=== PATIENT | female | born 1965 | race Caucasian/White ===

== ENCOUNTER 2022-12-08 10:54 | Emergency (ER) | payer MEDICAID, SELFPAY ==
[2022-12-08 10:55] VITALS: BP 141/85; PULSE 95; RESP 16; TEMP 36.2; O2SAT 99; BMI 29.7
--- NOTE | 2022-12-08 11:04 | ED.RN ---
PT NOT FORTHCOMING WITH MEDICAL INFORMATION. THIS RN MUST ASK QUESTIONS MULTIPLE TIMES FOR PATIENT TO RESPOND. WHEN ASKED ABOUT MENTAL HEALTH AND SUICIDAL IDEATION PT STATES YES AND YES THAT SHE ATTEMPTED IN THE PAST YEAR. SHE REFUSES TO ELABORATE AND FOR THAT I PUT A MODERATE RISK FOR PHYSICIAN EVALUATION. PT RIPPED GAUZE OFF HER ARM FROM BLOOD DRAW AND THREW IT ON THE GROUND. PT INFORMED THAT KIND OF BEHAVIOR IS NOT TOLERATED. PT WALKED TO THE BATHROOM BY THIS RN. SHE REFUSES TO PEE IN A CUP. PT ASSISTED BACK TO ROOM WHERE SHE PULLS HER CARDIAC MONITORING LEADS OFF AND LAYS BACK DOWN IN BED.
--- NOTE | 2022-12-08 12:01 | EDS_ITS ---
HPI History of Present Illness Chief Complaint: Back Informant: patient Onset/Context/Timing Onset: Days (5) Context: Gradual Onset Chronic pain exacerbated by: Fall 5 days ago Injury: fall Timing: Continuous Quality: Throbbing Location: Lumbar, Buttock and Left Leg Worsened by: improves with Nothing Relieved by: Nothing Associated Symptoms Associated Symptoms: Radiation to Left Leg and Abdominal Pain; Negative for Numbness, Tingling, Radiation to Right Leg, Fever, Dysuria, Unable to Ambulate, Unable to Transfer, Urinary Retention, Urinary Incontinence, Constipation or Fecal Incontinence Narrative Narrative: Patient presents with back pain that began 5 days ago. Patient states she fell at that time. Patient states her pain is over her lower back and radiates into her left lower extremity. Patient denies any difficulty walking. Patient denies any paresthesias. Patient describes her pain as throbbing. Patient denies any weakness. Patient denies any bowel or bladder incontinence. Patient states she has noted some blood in her urine recently. Patient denies any fevers or chills. [facility] Medical History (Updated 12/08/22 @ 15:[address] Sanjeev Whipple DO) Asthma COPD (chronic obstructive pulmonary disease) Hyperlipidemia Hypertension Home Medications aspirin 81 mg chewable tablet 81 mg PO DAILY 12/08/22 [History Last Taken Unknown] ciprofloxacin HCl 500 mg tablet 500 mg PO BID #6 TABLETS 12/08/22 [Rx Last Taken Unknown] losartan 100 mg tablet 100 mg PO DAILY 12/08/22 [History Last Taken Unknown] Allergy/AdvReac Type Severity Reaction Status Date / Time ibuprofen Allergy Other Verified 12/08/22 10:59 Surgical History History of left hip replacement Hx of hysterectomy Hx of tubal ligation Social History Smoking Status: Current every day smoker tobacco type: cigarettes ROS ROS ED Constitutional Constitutional ED: Denies chills or fever(s) Eyes Eyes: Denies blurry vision or change in vision ENT ENT ED: Denies rhinorrhea or sore throat Cardiovascular Cardiovascular: Denies chest pain or palpitations Respiratory/Chest Respiratory/Chest: Denies cough or dyspnea Gastrointestinal Gastrointestinal: Reports abdominal pain; Denies nausea or vomiting Genitourinary Genitourinary ED: Reports hematuria; Denies dysuria Musculoskeletal Musculoskeletal: Reports back pain; Denies neck pain Integumentary Denies abscess or rash Neurologic Neurologic: Denies headache(s) or weakness Allergic/Immunologic Allergic/Immunologic ED: Denies mouth swelling or urticaria EXAM Physical Exam Const Vital Signs: 12/08/22 10:55 12/08/22 14:54 Temperature 97.2 F L Temperature Source Temporal Pulse Rate 95 95 Respiratory Rate 16 20 H Blood Pressure 141/85 H 135/81 H Blood Pressure Mean 103 99 Pulse Ox 99 94 Oxygen Delivery Method Room Air Room Air Positive well nourished and well developed General Appearance ED: well developed HEENT Reports moist mucous membranes Neck supple and no JVD Resp normal respiratory effort and clear to auscultation bilaterally Cardio regular rate, regular rhythm and no murmurs GI normal to inspection, nondistended, normoactive bowel sounds and non-tender Palpation: soft Extremity normal to inspection General Extremety ED: Negative for edema or tenderness General Extremity: Negative for edema Neuro oriented x3, CN's II-XII intact bilaterally and no sensory deficits noted Sensorium / Orientation: alert Motor Exam: strength 5/5 throughout Psych mental status grossly normal Skin no rashes or lesions noted MDM MDM MDM Narrative Medical decision making narrative: Differential diagnosis includes lumbosacral strain, hemorrhagic cystitis, pyelonephritis, ectopic , and gastrointestinal etiology. We will obtain lumbar spine x-rays to check for lumbar fracture or spondylolisthesis. We will obtain a CT scan of the abdomen and pelvis to check for pyelonephritis or renal calculus. We will obtain urinalysis to check for urinary tract infection and hematuria. We will obtain a test to check for pregn alfonso/ectopic . We will check a CBC to look for leukocytosis and anemia. We will check a basic metabolic profile to check for electrolyte abnormality and renal function. Lab Data Attestation: I reviewed the patient's lab results. Lab results narrative: CBC was reviewed and was within normal limits. Basic metabolic profile was reviewed and was essentially within normal limits. Serum hCG was reviewed and was negative. Urinalysis was reviewed and showed a leukocyte esterases of 500 with 25-50 white blood cells and 2+ bacteria. There were positive nitrites. Occult blood was 150 but there were 0 red blood cells noted. Urine culture was ordered. Labs: Laboratory Results - last 24 hr 12/08/22 12/08/2212/08/23 12:00 12:00 12:00 WBC 7.3 RBC 4.58 Hgb 14.5 Hct 43.6 MCV 95.2 MCH 31.7 MCHC 33.3 RDW Std Deviation 57.5 H RDW Coeff of Belinda 16.9 H Plt Count 211 MPV 10.0 Immature Gran % (Auto) 1.200 H Neut % (Auto) 55.6 Lymph % (Auto) 34.5 Brantley % (Auto) 8.2 Eos % (Auto) 0.1 Baso % (Auto) 0.4 Absolute Neuts (auto) 4.1 Absolute Lymphs (auto) 2.53 Nucleated RBC % 0 Sodium 143 Potassium 3.2 L Chloride 108 H Carbon Dioxide 27.0 Anion Gap 8 BUN 8 Creatinine 0.64 Estim Creat Clear Calc 82.16 Est GFR (MDRD) Af Amer 123 Est GFR (MDRD) Non-Af 102 BUN/Creatinine Ratio 12.5 Glucose 96 Calcium 8.4 L Serum , Qual NEGATIVE Urine Color Urine Clarity Urine pH Ur Specific [place] Urine Protein Urine Glucose (UA) Urine Ketones Urine Occult Blood Urine Nitrite Urine Bilirubin Urine Urobilinogen Ur Leukocyte Esterase Urine RBC Urine WBC Ur Squamous Epith Cells Urine Bacteria Urine Mucus 12/08/22 14:20 WBC RBC Hgb Hct MCV MCH MCHC RDW Std Deviation RDW Coeff of Belinda Plt Count MPV Immature Gran % (Auto) Neut % (Auto) Lymph % (Auto) Brantley % (Auto) Eos % (Auto) Baso % (Auto) Absolute Neuts (auto) Absolute Lymphs (auto) Nucleated RBC % Sodium Potassium Chloride Carbon Dioxide Anion Gap BUN Creatinine Estim Creat Clear Calc Est GFR (MDRD) Af Amer Est GFR (MDRD) Non-Af BUN/Creatinine Ratio Glucose Calcium Serum , Qual Urine Color YELLOW Urine Clarity Sl Cldy Urine pH 6.0 Ur Specific [place] 1.020 Urine Protein 30 H Urine Glucose (UA) Normal Urine Ketones 5 H Urine Occult Blood 150 H Urine Nitrite Positive H Urine Bilirubin Negative Urine Urobilinogen 1 H Ur Leukocyte Esterase 500 H Urine RBC 0 SEEN Urine WBC 25-50 SEEN Ur Squamous Epith Cells 0-5 SEEN Urine Bacteria 2+ Urine Mucus 0 SEEN Radiography Diagnostic Testing: Clinical Impression(s) from Imaging Studies Abdomen/Pelvis CT 12/08/22 12:07 IMPRESSION: 1. Moderate hepatic steatosis. 2. Question chronic colitis. Electronically Signed: Trung hSah MD at 13:44 EST , Lumbar Spine X-Ray 12/08/22 13:15 IMPRESSION: L2-3 disc degeneration. Electronically Signed: Trung Shah MD at 13:45 EST Reading Location ID and State: [id number] / Tel , Service support , X-rays of the lumbar spine were obtained. There are 3 views. On my independent interpretation, there is no acute fracture or spondylolisthesis. There are some degenerative changes at the L2-L3 area. CT scan of the abdomen pelvis was obtained. On my interpretation, there is no free air or obstruction. There is no ascites. CT scan was also interpreted by the radiologist. On his interpretation, there is moderate hepatic steatosis and questionable chronic colitis. There is no acute abnormality noted. Treatment and Re-Evaluation Narrative: Patient was feeling better on reevaluation. Patient was given a dose of Cipro here. Patient was given a prescription for Cipro. Patient was instructed to drink plenty of fluids. Patient was instructed to continue Tylenol as needed for pain. Patient was instructed to follow-up with her primary care physician in 5 to 7 days. Patient understood and was agreeable with the plan. All questions were answered. Discharge Plan Triage Chief Complaint: Back ED Provider: Sanjeev Whipple Dx/Rx/DC Orders Clinical Impression: Urinary tract infection, Low back pain Instructions: ED Back Pain (Acute or Chronic), ED Cystitis Female Adult Prescriptions: New ciprofloxacin HCl [ciprofloxacin HCl] 500 mg tablet 500 mg PO BID Qty: 6 0RF No Action aspirin [Baby Aspirin] 81 mg Tablet,Chewable 81 mg PO DAILY losartan 100 mg Tablet 100 mg PO DAILY Primary Care Provider: Care Physician,No Primary Referrals: NOT,DEFINED [Non-Staff] - 5-7 Days Disposition Disposition: Home, Self Care
--- NOTE | 2022-12-08 12:07 | CT_ITS ---
EXAM: CT ABDOMEN AND PELVIS WITHOUT INTRAVENOUS CONTRAST CLINICAL INDICATION: Back and flank pain X5 DAYS TECHNIQUE: Helically acquired images were obtained of the abdomen and pelvis without intravenous contrast. This CT exam was performed using one or more of the following dose reduction techniques: automated exposure control, adjustment of the mA and/or kV according to patient size, and/or use of iterative reconstruction technique. This report was created using [employer] report generation technology. COMPARISON: None. FINDINGS: LOWER THORAX: Mild air trapping of the lung bases. ABDOMEN: LIVER: Moderate hepatic steatosis. GALLBLADDER AND BILE DUCTS: Normal. No calcified gallstones. No gallbladder distention or wall edema. No intra- or extrahepatic biliary ductal dilation. PANCREAS: Normal. No focal cystic mass. SPLEEN: Normal. Normal size without focal cystic or solid mass. ADRENALS: Normal. No nodules. KIDNEYS AND URETERS: Normal. No hydronephrosis. STOMACH AND BOWEL: Large bowel is diffusely contracted which may account for some of the apparent wall thickening. However, underlying chronic colitis involving the cecum and ascending colon to BE considered. Terminal ileum appears normal. PELVIS: APPENDIX: No evidence of acute appendicitis. BLADDER: Normal. REPRODUCTIVE: Uterus is absent. ABDOMEN and PELVIS: INTRAPERITONEAL SPACE: Normal. No ascites or other fluid collection. No free air. BONES/JOINTS: Left hip prosthesis in place. Mild dextroscoliosis centered at the L2-3 level there is disc space narrowing and bony spurring. No suspicious lytic or blastic abnormality. SOFT TISSUES: Normal. No discrete abdominal or pelvic wall hernia. VASCULATURE: Normal. Abdominal aorta is non-dilated. LYMPH NODES: Normal. No enlarged lymph nodes. CT/Abdomen/Pelvis without Cont IMPRESSION: 1. Moderate hepatic steatosis. 2. Question chronic colitis. Electronically Signed: Trung Shah MD at 13:44 EST ,
[2022-12-08] MEDS: Acetaminophen 500 MG Tablet 1000 MG PO (12:24)
[2022-12-08 12:29] LABS: Absolute Lymphocyte Count 2.53 X10^3/uL (0.83-4.51); Absolute Neutrophil Count 4.1 X10^3/uL (2.0-7.7); Basophil# 0.03 X10^3/uL; Basophil% 0.4 % (0-1); Eosinophil# 0.01 X10^3/uL; Eosinophils% 0.1 % (0-5); Hematocrit 43.6 % (37-47); Hemoglobin 14.5 g/dL (12.0-15.0); Lymphocyte # 2.53 X10^3/ul (0.83-4.51); Lymphocyte % 34.5 % (19-41); Mean Corp Hgb Conc 33.3 g/dL (32-36); Mean Corpuscular Hgb 31.7 pg (27.0-32.0); Mean Corpuscular Volume 95.2 fL (81-99); Monocyte% 8.2 % (0-10); NRBC Flagged by Analyzer 0 % (0-5); Neutrophil # 4.08 X10^3/uL (2.7-7.7); Neutrophil % 55.6 % (47-70); Platelet Count 211 K/mm3 (150-450); RBC Distribution Width CV 16.9 % (11.6-14.6); RBC Distribution Width SD 57.5 fl (35.1-43.9); Red Blood Count 4.58 M/mm3 (4.2-5.4); White Blood Count 7.3 K/mm3 (4.4-11.0)
[2022-12-08 12:38] LABS: Anion Gap 8 (5-15); BUN 8 mg/dL (7-18); BUN/Creat Ratio 12.5 RATIO (10-20); Calcium,Total 8.4 mg/dL (8.5-10.1); Chloride 108 mmol/L (98-107); Creatinine, Serum 0.64 mg/dL (0.55-1.02); EST Glomerular Filtration Rate 102 mL/min (>60); Est Glom Filt Rate - Afr Amer 123 mL/min (>60); Estimated Creatinine Clearance 82.16 ml/min; Glucose 96 mg/dL (74-106); Potassium 3.2 mmol/L (3.5-5.1); Sodium Level 143 mmol/L (136-145)
[2022-12-08] MEDS: 0.9% Normal Saline 1,000 ML 1000 ML IV (12:43)
[2022-12-08 13:05] LABS: Internal QC Validated? YES +Cl - CLEAR BKGD; Pregnancy, Serum, hCG Quali. NEGATIVE Negative
--- NOTE | 2022-12-08 13:15 | RAD_ITS ---
EXAM: XR LUMBOSACRAL SPINE, 2 OR 3 VIEWS CLINICAL INDICATION: Injury/Pain TECHNIQUE: Frontal and lateral views of the lumbar spine and sacrum. This report was created using [employer] report generation technology. COMPARISON: None. FINDINGS: VERTEBRAE: No acute fracture or subluxation. DISC SPACES: Narrowing of the left side of the L2-3 disc space associated with mild dextroscoliosis and vertebral body hypertrophy. RAD/Lumbar Spine 2 or 3 Views IMPRESSION: L2-3 disc degeneration. Electronically Signed: Trung Shah MD at 13:45 EST ,
--- NOTE | 2022-12-08 13:34 | ED.RN ---
Patients daughter Shanta calling asking for patient information. Shanat informed we cannot share any information over the phone due to her not being an emergency contact. Shanta asked if she could talk to patient. Rn informed Shanta that she is out of the department at this time and will inform patient when she returns. daughters number left to call back. Patient asked if it is ok to share information with Shanta. patient said yes.
--- NOTE | 2022-12-08 13:39 | ED.RN ---
attempt to call daughter. unable to reach her at this time. message left on answering machine
[2022-12-08 14:27] LABS: Mucous, Urine 0 SEEN /hpf (<or=2+); Red Blood Cells-Urine 0 SEEN /hpf (0-5)
--- NOTE | 2022-12-08 14:27 | ED.RN ---
Patients Arnel ramirez asking for patients medical information over phone. Arnel informed that he is not listed as an emergency contact and cannot share information over the phone at this time. Arnel upset stating he was the one who called the paramedics to get her. Arnel also stated you can deal with her then and hung up the phone. Patient informed of conversation and requested her purse to call him at this time.
[2022-12-08 14:34] LABS: Glucose, Dipstick Normal (Normal); Ketone-Dipstick 5 mg/dl (Negative); Leukocyte Esterase-Dipstick 500 /ul (Negative); Nitrite-Dipstick Positive (Negative); Occult Blood-Urine 150 /ul (Negative); Protein-Dipstick 30 mg/dl (Negative); Urine Bilirubin Dipstick Negative (Negative); Urine Urobilinogen 1 mg/dl (Normal)
[2022-12-08 14:40] LABS: Color, Urine YELLOW (Yellow); Urine Clarity Sl Cldy (Clear)
[2022-12-08 14:41] LABS: Bacteria 2+ /hpf (None Seen); Squamous Epithelial Cells - UA 0-5 SEEN /hpf (5-10); White Blood Cells 25-50 SEEN /hpf (0-5)
[2022-12-08 14:54] VITALS: BP 135/81; PULSE 95; RESP 20; O2SAT 94
--- NOTE | 2022-12-08 16:05 | ED.RN ---
patients mother paola called. Message left on phone. Patients daughter Shanta called. Message left on voicemail to call ED back. Juan phone number [phone]. patient states she wants us to call Arnel to have him come pick her up. Edson phone has been called twice by this RN and unable to leave message due to voicemail is full.
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
== END 2022-12-08 15:40 | disposition home or self-care (01) ==
PROVIDERS: Emergency Provider Emergency Medicine; Visit Provider Emergency Medicine
DX: N39.0 Urinary tract infection, site not specified (principal); J44.9 Chronic obstructive pulmonary disease, unspecified; R31.9 Hematuria, unspecified; M54.50 Low back pain, unspecified; M79.605 Pain in left leg; I10 Essential (primary) hypertension; E78.5 Hyperlipidemia, unspecified; G89.29 Other chronic pain; F17.210 Nicotine dependence, cigarettes, uncomplicated; Z79.82 Long term (current) use of aspirin; Z79.899 Other long term (current) drug therapy
CPT/HCPCS: 51701; 72100; 74176; 80048; 81001; 84703; 85025; 96360; 99285; J7030; P9612; A4216